=== PATIENT | male | born 1980 | race Caucasian/White ===

== ENCOUNTER → 2021-12-08 | Outpatient (CLI) | payer OTHER ==
--- NOTE | 2021-12-08 16:45 | XR ---
EXAMINATION TYPE: XR hand complete bilateral DATE OF EXAM: 12/08/2021 COMPARISON: NONE HISTORY: Pain TECHNIQUE: 6 views FINDINGS: There is no evidence of fracture nor dislocation. Joint spaces are fairly normal. There are no erosions. No subluxation. Metacarpals are intact. IMPRESSION: Negative bilateral hand exam. No sign of inflammatory arthritis.
--- NOTE | 2021-12-08 16:46 | XR ---
EXAMINATION TYPE: XR forearm bilateral DATE OF EXAM: 12/08/2021 COMPARISON: NONE HISTORY: Pain TECHNIQUE: 2 views each forearm FINDINGS: Radius and ulna appear intact. Elbow joint and wrist joint appear intact. There are no eros ions. No sign of elbow joint effusion. There is bilateral mild spurring on the olecranon process. IMPRESSION: Negative bilateral forearm exam. No sign of inflammatory arthritis.
--- NOTE | 2021-12-08 16:48 | XR ---
EXAMINATION TYPE: XR wrist complete BILATERAL DATE OF EXAM: 12/08/2021 COMPARISON: NONE HISTORY: Pain TECHNIQUE: 4 views each wrist FINDINGS: Carpal bones appear intact. There is no fracture nor dislocation. There are no erosions. No subluxation. No pathologic soft tissue calcification. IMPRESSION: Negative bilateral wrist exam. No sign of inflammatory arthritis.
== END | disposition home or self-care (01) ==
LOC: RADXRMAIN 16:07
PROVIDERS: ATTEND Emergency Medicine
DX: M79.641 Pain in right hand (principal); M79.642 Pain in left hand

== ENCOUNTER → 2022-01-22 | Outpatient (CLI) | payer OTHER ==
[2022-01-23 01:12] LABS: Anion Gap 7.6 mmol/L (10.00-18.00); Carbon Dioxide 27.8 mmol/L (20.0-27.5); Potassium 3.8 mmol/L (3.5-5.5)
[2022-01-23 02:01] LABS: Basophils # (A) 0.09 X 10*3/uL (0.00-0.10); Eosinophils # (A) 0.24 X 10*3/uL (0.04-0.35); Eosinophils % (A) 2.6 %; HCT 47.1 % (39.6-50.0); HGB 15.5 g/dL (13.0-17.0); Immature Grans, Automated 0.2 %; Lymphocytes # (A) 2.24 X 10*3/uL (0.90-5.00); Lymphocytes % (A) 23.9 %; MCH 30.1 pg (27.0-32.0); MCHC 32.9 g/dL (32.0-37.0); MCV 91.5 fL (80.0-97.0); Mean Platelet Volume 9.3 fL (9.5-12.2); Monocytes # (A) 0.65 X 10*3/uL (0.20-1.00); Monocytes % (A) 6.9 %; NRBC Per 100 WBC 0 /100 WBCS (0.0-0.0); Neutrophils # (A) 6.15 X 10*3/uL (1.80-7.70); Neutrophils % (A) 65.4 %; Platelet Count 285 X 10*3/uL (140-440); RBC 5.15 X 10*6/uL (4.40-5.60); RDW 12.9 % (11.5-14.5); WBC 9.39 X 10*3/uL (4.50-10.00)
== END | disposition home or self-care (01) ==
LOC: LABPAT 15:15
PROVIDERS: ATTEND Orthopaedic Surgery Hand Surgery
DX: Z01.812 Encounter for preprocedural laboratory examination (principal); G56.01 Carpal tunnel syndrome, right upper limb; G56.21 Lesion of ulnar nerve, right upper limb
CPT/HCPCS: 80051; 85025

== ENCOUNTER 2022-01-28 12:20 | Day surgery (SDC) | payer OTHER ==
--- NOTE | 2022-01-27 08:11 | P.HPOR ---
History of Present Illness H&P Date: 01/27/22 Chief Complaint: Right carpal tunnel/cubital tunnel syndrome Subjective: This is a 41 year old male that presents today for initial evaluation regarding progressively worsening bilateral hand paresthesias and weakness. 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 He denies any injury and states he had a recent EMG/NCV. He is currently still working but as an instructor. He states his paresthesias involve the entire hand. Physical Examination: LUE: AIN/PIN/Radial/Ulnar/Median motor intact. Radial/Ulnar/Median SILT. 2+/4 Radial/Ulnar pulses palpated. 5/5 APB, 5/5 FDI. Negative Finkelsteins, negative CMC grind, positive Durkan's compression. Paresthesias in ring and small finger with prolonged elbow flexion. RUE: AIN/PIN/Radial/Ulnar/Median motor intact. Radial/Ulnar/Median SILT. 2+/4 Radial/Ulnar pulses palpated. 5/5 APB, 5/5 FDI. Negative Finkelsteins, negative CMC grind, positive Durkan's compression. Paresthesias in ring and small finger with prolonged elbow flexion. Imaging/NCV/EMG: EMG/NCV shows bilateral cubital tunnel syndrome Impression: 1.) B/L cubital tunnel syndrome 2.) B/L carpal tunnel syndrome Plan: Diagnosis and treatment options were discussed with the patient. Nerve testing findings were discussed with the patient. We discussed he has physical exam sides of both carpal and cubital tunnel syndrome. Due to his progressively worsening symptoms despite rest and anti-inflammatories I recommend surgical intervention with right endoscopic vs open carpal tunnel release and right open cubital tunnel release. Risks and benefits of surgery including bleeding, infection, damage to surrounding tissue, need for further surgery, possible need to convert to open procedure, residual numbness were discussed and the patient wished to go forward with surgery. 4 weeks of work off will be anticipated after surgery. He would like to pursue the right side surgery first and may continue current work restrictions with no lifting/pushing or pressing with his hands and to remain as an instructor until surgery in the near future. -Caden Rodriguez DO Orthopedic Hand/Upper Extremity Surgeon Physical Examination Osteopathic Statement: *. No significant issues noted on an osteopathic structural exam other than those noted in the History and Physical/Consult.
[2022-01-27 08:26] VITALS: BMI 24.6
[~2022-01-28 12:20] MED LIST: HYDROmorphone 0.5 MG/0.5 ML SYRINGE IVP PRN; LACTATED RINGERS 1,000 ML IV SCH; Pre Op ABX Message 1 EACH MISC MISCELLANE ONE
[2022-01-28 12:51] VITALS: RESP 16
[2022-01-28] MEDS ORDERED: LIDOCAINE 1% (10MG/ML) FOR IV START INTRADERMA ONE (13:00)
[2022-01-28] MEDS ORDERED: DEXAMETHASONE SOD PHOSPHATE 4 MG/ML 1 ML VIAL IV ONE (13:05)
[2022-01-28] MEDS ORDERED: ONDANSETRON 4 MG/2 ML VIAL ONE (13:05)
[2022-01-28] MEDS ORDERED: LIDOCAINE 1% INJ 10MG/ML (30 ML VIAL-PF) SQ ONE (14:41)
[2022-01-28] MEDS ORDERED: LIDOCAINE 2% INJ 20 MG/ML (2 ML VIAL) ONE (14:41)
[2022-01-28] MEDS ORDERED: HYDROmorphone (PF) 1 MG/ML ONE (14:41)
[2022-01-28] MEDS ORDERED: PROPOFOL 10 MG/ML 20 ML VIAL IV ONE (14:41)
[2022-01-28] MEDS ORDERED: BUPIVACAINE (PF) 0.5% 30 ML VIAL SQ ONE (14:41)
[2022-01-28] MEDS ORDERED: MIDAZOLAM 2 MG/2 ML VIAL ONE (14:41)
[2022-01-28] MEDS ORDERED: fentaNYL (PF) 50 MCG/ML 2 ML AMP ONE (14:41)
[2022-01-28] MEDS ORDERED: GLYCOPYRROLATE 0.2 MG/ML 2 ML VIAL ONE (14:41)
[2022-01-28] MEDS ORDERED: LACTATED RINGERS 1,000 ML IV ONE (15:06)
[2022-01-28 15:57] VITALS: TEMP 97
--- NOTE | 2022-01-28 16:02 | P.OP ---
Date of Procedure: 01/28/22 Preoperative Diagnosis: 1.) Right carpal tunnel syndrome 2.) Right cubital tunnel syndrome Postoperative Diagnosis: 1.) Right carpal tunnel syndrome 2.) Right cubital tunnel syndrome Procedure(s) Performed: 1.) Right endoscopic carpal tunnel release 2.) Right open cubital tunnel release Anesthesia: MARCELO Surgeon: Caden Rodriguez Dairy Helper #1: Wilfrid Barbosa Estimated Blood Loss (ml): 10 Pathology: none sent Condition: stable Disposition: PACU Description of Procedure: This is a 43 year old male who presented today for a right endoscopic carpal tunnel release and open cubital tunnel release after having failed conservative treatment. Risks and benefits of surgery were discussed with the patient including bleeding, damage to surrounding tissue, infection, need for further surgery as well as risks of anesthesia including pulmonary embolism and even and the patient wished to proceed with surgical intervention. The patient was seen in the pre-operative area by myself. Consent and H&P were completed and updated. The correct extremity was marked in the pre-operative area by myself and all other questions were answered. Operative Narrative: The patient was brought to the operating room by the department of anesthesia. They remained on the portable stretcher and a rolling hand table was brought to the side of the operative extremity. Pre-operative time out was performed indicating the correct patient, procedure and laterality. All in the r oom agreed. Pre-operative antibiotics were given prior to skin incision. The patient was then drifted off to sleep by the department of anesthesia. A nonsterile tourniquet was then applied to the operative extremity and the right upper extremity was then prepped and draped in normal sterile fashion. The operative extremity was the exsanguinated with an esmarch bandage and the tourniquet was inflated to 250mmHg. 15 blade scalpel was utilized to make a transverse incision on the palmar skin just ulnar to the palmaris longus tendon at the level of the distal wrist crease. Ragnell retractor was then placed radially and blunt dissection was performed to reveal the distal forearm fascia. This was lifted with fine Marck pick ups and Littler tenotomy scissors were then used to open the forearm fascia transversely and a double skin hook was then placed. Hamate finder was placed into the carpal tunnel and then sequential sized dilators were inserted followed by the synovial elevator to separate the flexor tenosynovium from the undersurface of the transverse carpal ligament and a washboard texture was felt. The MicroAire endoscopic carpal tunnel release system gun was the then inserted into the carpal tunnel hugging the deep portion of the transverse carpal ligament in line with the base of the ring finger. Transverse fibers of the ligament were directly visualized. Pressure was applied on the palm to reveal the distal extent of the transverse carpal ligament. The blade was then deployed and the distal half of the transverse carpal ligament was released. The scope was then brought distal again and remaining transverse fibers were incised with the blade. The proximal half of the transverse carpal ligament was then divided and again the scope was advanced distal and remaining transverse fibers were incised with the blade. The radial and ulnar leaflets were directly visualized and mobile consistent with complete release. Tenotomy scissors were then utilized to release the remaining distal forearm fascia under direct visualization taking care to preserve the palmar cutaneous branch of the median nerve. Attention was brought to the medial elbow. 15 blade scalpel was used to incise skin in between the medial epicondyle and olecranon in a curvlinear and longitudinal fashion. Blunt dissection was taken down through subcutaneous tissue with tenotomy scissors and branches of the MABCN were identified and protected. Dissection was carried proximally and the ulnar nerve was identified and released in it's entirety to the intermuscular septum. Dissection was then carried distally and rhodes's ligament was released at the medial epicondyle, the nerve appeared compressed at this location. Dissection was then carried out further distal and the fascia of the two heads of the FCU were incised and the ulnar nerve was decompressed with [place] and tenotomy scissors and appeared to be tension free. The elbow was the flexed and extended and the ulnar nerve appeared to be stable in a tension free manner 20 0.5% bupivacaine was injected into the subcutaneous tissues. Skin closure was performed with interrupted 4-0 Monocryl sutures followed by running 4-0 Monocryl sutures, tourniquet was then let down and the hand had immediate perfusion. The patient was then woken by the department of anesthesia and transferred to PACU in stable condition. Wilfrid PINON was present for the case to assist in major portion of the surgery including protection of vital neurovascular structures. Caden Rodriguez D.O. Orthopedic Hand/Upper Extremity Surgeon
[2022-01-28] MEDS: hydrALAZINE HCL 20 MG/ML 1 ML VIAL IVP ONE ×2 (16:13→16:24)
[2022-01-28 16:44] VITALS: PULSE 65
[2022-01-28 17:02] VITALS: BP 165/99
== END 2022-01-28 17:13 | disposition home or self-care (01) ==
LOC: OR 12:20
PROVIDERS: ATTEND Orthopaedic Surgery Hand Surgery
DX: G56.01 Carpal tunnel syndrome, right upper limb (principal); G56.21 Lesion of ulnar nerve, right upper limb; F17.200 Nicotine dependence, unspecified, uncomplicated
CPT/HCPCS: 29848; 64718; J2250; J0360; J1100; J2405; J2001 ×2; J3010; J1170; J2704

== ENCOUNTER 2022-02-25 08:56 | Day surgery (SDC) | payer OTHER ==
--- NOTE | 2022-02-23 10:43 | P.HPOR ---
History of Present Illness H&P Date: 02/23/22 Chief Complaint: Left cubital tunnel syndrome Subjective: This is a 41 year old male that presents today for a post-operative visit after undergoing right endoscopic carpal tunnel release/right open cubital tunnel release on 01/28/22. He is 1.5 weeks out and has been doing well and notices the numbness in the hand is gone. He states he is sore but is working on ROM. He has no other complaints. He would like to look into scheduling cubital tunnel relea se for his hand numbness in the small and ring fingers on the left side. Physical Examination: RUE: AIN/PIN/Radial/Ulnar/Median motor intact. Radial/Ulnar/Median SILT. 2+/4 Radial/Ulnar pulses palpated. Bruising around medial elbow and palm. Able to make a full fist. LUE: AIN/PIN/Radial/Ulnar/Median motor intact. Radial/Ulnar/Median SILT. 2+/4 Radial/Ulnar pulses palpated. Negative durkan's compression test, paresthesias with elbow flexion in ring and small finger. Positive tinel's at elbow. Impression: 1.) S/P Right endoscopic carpal tunnel release/right open cubital tunnel release 2.) Left cubital tunnel syndrome Plan: Diagnosis and treatment options and were discussed with the patient. He may WBAT with the right upper extremity and continue to work on ROM exercises. He is scheduled for left open cubital tunnel release. Risks and benefits of surgery including bleeding, infection, damage to surrounding tissue, need for further surgery, residual numbness were discussed and the patient wished to go forward with surgery. I will see him the day of his next surgery and anticipate 4 weeks off of work post operatively for his left cubital tunnel surgery. He was agreeable with this plan. -Caden Rodriguez DO Orthopedic Hand/Upper Extremity Surgeon Past Medical History Additional Past Medical History / Comment(s): Hx spontaneous collapse of left lung X2, last in 2007. History of Any Multi-Drug Resistant Organisms: None Reported Additional Past Surgical History / Comment(s): Procedures for collapsed lung X2. Past Anesthesia/Blood Transfusion Reactions: No Reported Reaction Past Psychological History: No Psychological Hx Reported Smoking Status: Current every day smoker Past Alcohol Use History: Rare Additional Past Alcohol Use History / Comment(s): Has been smoking for 27 yrs, 1 pdd. Past Drug Use History: None Reported - Past Family History Father Family Medical History: Cancer Additional Family Medical History / Comment(s): Lung cancer. Medications and Allergies Home Medications Medication Instructions Recorded Confirmed Type HYDROcodone/APAP 5-325MG [[place] 1 tab PO Q6HR PRN 3 Days #18 tab 01/28/22 Rx 5-325] Allergies Allergy/AdvReac Type Severity Reaction Status Date / Time morphine Allergy Unknown Verified 01/28/22 12:43 Physical Examination Osteopathic Statement: *. No significant issues noted on an osteopathic structural exam other than those noted in the History and Physical/Consult.
[2022-02-23 15:31] VITALS: BMI 25.3
[~2022-02-25 08:56] MED LIST changes: +DEXAMETHASONE SOD PHOSPHATE 4 MG/ML 1 ML VIAL IV ONE; -HYDROmorphone 0.5 MG/0.5 ML SYRINGE IVP PRN; +ONDANSETRON 4 MG/2 ML VIAL IVP ONE; +fentaNYL (PF) 50 MCG/ML 2 ML AMP IV PRN
[2022-02-25] MEDS ORDERED: PROPOFOL 10 MG/ML 20 ML VIAL IV ONE (09:17)
[2022-02-25] MEDS ORDERED: KETOROLAC 30 MG/ML 1 ML VIAL ONE (09:17)
[2022-02-25] MEDS ORDERED: MIDAZOLAM 2 MG/2 ML VIAL ONE (09:17)
[2022-02-25] MEDS ORDERED: fentaNYL (PF) 50 MCG/ML 2 ML AMP ONE (09:17)
[2022-02-25] MEDS ORDERED: LACTATED RINGERS 1,000 ML IV ONE (09:21)
[2022-02-25] MEDS ORDERED: LIDOCAINE 1% INJ 10MG/ML (20 ML MDV) SQ ONE ×3 (10:14→10:46)
[2022-02-25] MEDS ORDERED: BUPIVACAINE (PF) 0.75% 10 ML VIAL SQ ONE ×3 (10:14→10:46)
[2022-02-25] MEDS ORDERED: LABETALOL SYRINGE 5 MG/ML IVP ONE (10:57)
[2022-02-25 11:11] VITALS: RESP 16; TEMP 97
[2022-02-25 12:01] VITALS: BP 153/94; PULSE 63
--- NOTE | 2022-02-25 19:03 | P.OP ---
Date of Procedure: 02/25/22 Preoperative Diagnosis: 1.) Left cubital tunnel syndrome Postoperative Diagnosis: 1.) Left cubital tunnel syndrome Procedure(s) Performed: 1.) Left open cubital tunnel release Anesthesia: MARCELO Surgeon: Caden Rodriguez Cellar Packer #1: Wilfrid Barbosa Estimated Blood Loss (ml): 0 Pathology: none sent Condition: stable Disposition: PACU Description of Procedure: This is a 41 year old male who presented today for a left open cubital tunnel release after having failed conservative treatment. Risks and benefits of surgery were discussed with the patient including bleeding, damage to surrounding tissue, infection, need for further surgery as well as risks of anesthesia including pulmonary embolism and even and the patient wished to proceed with surgical intervention. The patient was seen in the pre-operative area by myself. Consent and H&P were completed and updated. The correct extremity was marked in the pre-operative area by myself and all other questions were answered. Operative Narrative: The patient was brought to the operating room by the department of anesthesia. They remained on the portable stretcher and a rolling hand table was brought to the side of the operative extremity. Pre-operative time out was perfo rmed indicating the correct patient, procedure and laterality. All in the room agreed. Pre-operative antibiotics were given prior to skin incision. The patient was then drifted off to sleep by the department of anesthesia. A nonsterile tourniquet was then applied to the operative extremity and the left upper extremity was then prepped and draped in normal sterile fashion. The operative extremity was the exsanguinated with an esmarch bandage and the tourniquet was inflated to 250mmHg. Attention was brought to the medial elbow. 15 blade scalpel was used to incise skin in between the medial epicondyle and olecranon in a curvlinear and longitudinal fashion. Blunt dissection was taken down through subcutaneous tissue with tenotomy scissors and branches of the MABCN were identified and prot ected. Dissection was carried proximally and the ulnar nerve was identified and released in it's entirety to the the intermuscular septum. Dissection was then carried distally and rhodes's ligament was released at the medial epicondyle, the nerve appeared compressed at this location. Dissection was then carried out further distal and the fascia of the two heads of the FCU were incised and the ulnar nerve was decompressed with [place] and tenotomy scissors and appeared to be tension free. The elbow was the flexed and extended and the ulnar nerve appeared to be stable in a tension free manner. 0.5% bupivacaine was injected into the subcutaneous tissues. Skin closure was performed with interrupted 4-0 Monocryl sutures followed by running 4-0 Monocryl sutures tourniquet was then let down and the hand had immediate perfusion. The patient was then woken by the department of anesthesia and transferred to PACU in stable condition. Wilfrid PINON was present to assist in major portions of the case including protection of vital neurovascular structures and retraction. Caden Rodriguez D.O. Orthopedic Hand/Upper Extremity Surgeon
== END 2022-02-25 12:25 | disposition home or self-care (01) ==
LOC: OR 08:56
PROVIDERS: ATTEND Orthopaedic Surgery Hand Surgery
DX: G56.22 Lesion of ulnar nerve, left upper limb (principal); F17.200 Nicotine dependence, unspecified, uncomplicated; Z86.59 Personal history of other mental and behavioral disorders; Z80.1 Family history of malignant neoplasm of trachea, bronchus and lung; Z80.0 Family history of malignant neoplasm of digestive organs; Z88.5 Allergy status to narcotic agent; Z79.899 Other long term (current) drug therapy
CPT/HCPCS: 64718; J2250; J1100; J2405; J2001; J3010; J1885; J2704

== ENCOUNTER → 2022-03-18 | Day surgery (SDC) | payer OTHER ==
[2022-03-13 12:06] VITALS: BMI 25.0
--- NOTE | 2022-03-17 15:45 | P.HPOR ---
History of Present Illness H&P Date: 03/17/22 Chief Complaint: Left cubital tunnel syndrome with ulnar nerve instability Subjective: This is a 41 year old male that presents today for a post-operative visit after undergoing left open cubital tunnel release on 02/25/22, he also underwent right endoscopic carpal tunnel release and right open in situ cubital tunnel release on 01/28/22. He states his right side is doing well and he is continuing to improve on a daily basis. Regarding his left side he states he has noticed worsening of his symptoms since the open cubital tunnel release now 11 days out from surgery. He states his hand feels very weak and has numbness in the small finger which is now worse than before surgery and has constant electrical shocks going down the inside of the arm to the small finger. He was initially in his post op dressing which he was able to remove at home on post op day 4. He denies any new injury and since his last vist last week he has noticed no change in his symptoms and slighlt worsening of the symptoms. Physical Examination: LUE: AIN/PIN/Radial/Median motor intact. Radial/Median SILT. 2+/4 Radial/Ulnar pulses palpated. Medial elbow incision well approximated, no signs of erythema or drainage. Bruising present throughout upper arm/elbow. Subjective worsening of paresthesias and pain in small finger, sensation intact to light touch in thumb through ring finger. 2/5 FDI. Patient unable to make fist. Impression: 1.) S/P Left open in situ cubital tunnel release Plan: Diagnosis and treatment options and were discussed with the patient. We discussed findings of worsening left cubital tunnel syndrome symptoms since surgery. We discussed that in situ release was performed on both the left and right side. I explained he did have a fair amount of tension on the left ulnar nerve at the level of the elbow with full flexion however his nerve was found to be stable intraoperatively after decompression therefore decision to not perform transposition was made. I explained that after in situ decompression he may be developing instability of the ulnar nerve after release on this left side. Due to his rapidly worsening ulnar nerve symptoms I recommend revision cubital tunnel release with anterior transposition due to the possibility of traction neuropraxia on the recently released ulnar nerve and to possibly address any instability that is now developing after surgery causing worsening of his cubital tunnel syndrome symptoms. The patient expressed understanding and is agreeable with this plan of action. Risks and benefits of surgery including bleeding, infection, damage to surrounding tissue, need for further surgery, residual numbness were discussed and the patient wished to go forward with surgery. -Caden Rodriguez DO Orthopedic Hand/Upper Extremity Surgeon Past Medical History Additional Past Medical History / Comment(s): Hx spontaneous collapse of left lung X2, last in 2007. History of Any Multi-Drug Resistant Organisms: None Reported Past Surgical History: Orthopedic Surgery Additional Past Surgical History / Comment(s): Procedures for collapsed lung X2. Right carpal tunnel/ CUBILAT surgery. LT CUBITAL TUNNEL RELEASE-02/25/22 Past Anesthesia/Blood Transfusion Reactions: No Reported Reaction Smoking Status: Current every day smoker - Past Family History Father Family Medical History: Cancer Additional Family Medical History / Comment(s): Lung cancer. Medications and Allergies Home Medications Medication Instructions Recorded Confirmed Type No Known Home Medications 02/23/22 03/13/22 History Allergies Allergy/AdvReac Type Severity Reaction Status Date / Time morphine Allergy Unknown Verified 03/13/22 12:01 Physical Examination Osteopathic Statement: *. No significant issues noted on an osteopathic structural exam other than those noted in the History and Physical/Consult.
[~2022-03-18] MED LIST changes: +BACITRACIN OINT 1 EACH PACKET TOPICAL ONE; +BUPIVACAINE (PF) 0.5% 30 ML VIAL SQ ONE; +HYDROcodone/APAP 7.5-325MG 1 EACH TAB ONE; +HYDROcodone/APAP 7.5-325MG 1 EACH TAB PO ONE; +HYDROmorphone (PF) 1 MG/ML ONE; +HYDROmorphone 0.5 MG/0.5 ML SYRINGE IVP ONE; +HYDROmorphone 0.5 MG/0.5 ML SYRINGE IVP PRN; +LACTATED RINGERS 1,000 ML IV ONE; +LIDOCAINE 1% (10MG/ML) FOR IV START INTRADERMA PRN; +LIDOCAINE 2% INJ 20 MG/ML (2 ML VIAL) ONE; +MIDAZOLAM 2 MG/2 ML VIAL ONE; +PROPOFOL 10 MG/ML 20 ML VIAL IV ONE; -Pre Op ABX Message 1 EACH MISC MISCELLANE ONE; -fentaNYL (PF) 50 MCG/ML 2 ML AMP IV PRN; +fentaNYL (PF) 50 MCG/ML 2 ML AMP ONE; +hydrALAZINE HCL 20 MG/ML 1 ML VIAL IVP ONE
[2022-03-18 17:12] VITALS: TEMP 97.7
--- NOTE | 2022-03-18 17:27 | P.OP ---
Date of Procedure: 03/18/22 Preoperative Diagnosis: 1.) Left cubital tunnel syndrome Postoperative Diagnosis: 1.) Left cubital tunnel syndrome Procedure(s) Performed: 1.) Left ulnar nerve decompression at level of elbow with anterior subcutaneous transposition Anesthesia: MARCELO Surgeon: Caden Rodriguez Filter Changer #1: Wilfrid Barbosa Estimated Blood Loss (ml): 15 Pathology: none sent Condition: stable Disposition: PACU Description of Procedure: This is a 41 year old male who presented initially with clinical and electrodiagnostically confirmed left cubital tunnel syndrome who originally underwent a left open in situ ulnar nerve decompression on 02/25/22. In the early post operative period he was found to have worsening signs and symptoms of cubital tunnel syndrome with persistent and worsening paresthesias in the small finger which was present prior to the initial procedure but now with motor weakness in the ulnar nerve distribution which was not present prior to surgery. Due to patients worsening condition decision was made to proceed with revision ulnar nerve decompression with anterior transposition. He presents today for a left open cubital tunnel release with anterior transposition. Risks and benefits of surgery were discussed with the patient including bleeding, persistent numbness, damage to surrounding tissue, infection, need for further surgery as well as risks of anesthesia including pulmonary embolism and even and the patient wished to proceed with surgical intervention. The patient was seen in the pre-operative area by myself. Consent and H&P were completed and updated. The correct extremity was marked in the pre-operative area by myself and all ot her questions were answered. Operative Narrative: The patient was brought to the operating room by the department of anesthesia. They remained on the portable stretcher and a rolling hand table was brought to the side of the operative extremity. Pre-operative time out was performed indicating the correct patient, procedure and laterality. All in the room agreed. Pre-operative antibiotics were given prior to skin incision. The patient was then drifted off to sleep by the department of anesthesia. A nonsterile tourniquet was then applied to the operative extremity and the left upper extremity was then prepped and draped in normal sterile fashion. The operative extremity was the exsanguinated with an esmarch bandage and the tourniquet was inflated to 250mmHg. Attention was brought to the medial elbow. 15 blade scalpel was used to incise skin at the previous incision site in between the medial epicondyle and olecranon in a curvlinear and longitudinal fashion. Blunt dissection was taken down through subcutaneous tissue with tenotomy scissors and branches of the MABCN were identified and protected as they were in the initial surgery and were found to still be intact. Dissection was first carried proximally and the ulnar nerve was identified. Dissection was then carried distally at the previous site of decompression at the medial epicondyle and early fibrous tissue surrounding the nerve was excised. The nerve was found to still be located posterior to the medial epicondyle but slightly subluxed over the medial epicondyle. The site of maximum compression at the index procedure was found to be located just posterior to the medial epicondyle, the nerve appeared to be healthier in appearance today compared to the index procedure at this particular site. Therefore the decision was made to carry the dissection further proximal and distal. Dissection was then carried out further distal and the fascia of the two heads of the FCU were bluntly seperated and the ulnar nerve was found to be adequately decompressed and appeared to be tension free with all surrounding fascial bands to be released distally as it was left at the end of the index procedure. Next the incision was extended proximally to look for further compression. Blunt dissection was taken down through subcutaneous tissues, the ulnar nerve was followed proximally and the patient was found to have an atypically proximally located [place] of [place], the ulnar nerve appeared to be very compressed at this location underneath a fascial band. The overlying fascial band was released and the nerve was now completely decompressed and tension free all the way up to healthy nerve tissue to the level where the nerve pierced the medial intermuscular septum. Decision was made to transpose the nerve anteriorly. The nerve was mobilized throughout it's entire length while preserving branches both proximally and distally to the FCU muscle. A flap of subcutaneous fat/tissue was then from the tissue anterior to the medial epicondyle to create a fascial sling anteriorly. The medial intermuscular septum was taken down to avoid a new area of compression proximally. 3-0 Vicryl suture was used to attach the fascial sling to the fibrous tissue around the medial epicondyle to prevent nerve subluxation. This was done in a tension free manner taking care not to compress the nerve with the new fascial sling. The elbow was the flexed and extended and the ulnar nerve appeared to be stable in a tension free manner with no kinks distal or proximally at it's newly transposed position. Tourniquet was then let down and direct pressure was held for several minutes. Hemostasis was controlled with needle tip bovie cautery. The hand had immediate perfusion. 25cc's 0.5% bupivacaine was injected into the subcutaneous tissues. Skin closure was performed with interrupted 3-0 Vicryl sutures followed by several running 4-0 nylon sutures. The patient was then placed in a large bulky dressing. The patient was then woken by the department of anesthesia and transferred to PACU in stable condition. Wilfrid PINON was present to assist in major portions of the case including protection of vital neurovascular structures and retraction. Caden Rodriguez D.O. Orthopedic Hand/Upper Extremity Surgeon
[2022-03-18 18:13] VITALS: BP 162/89; PULSE 77; RESP 18
== END | disposition home or self-care (01) ==
LOC: OR 11:34
PROVIDERS: ATTEND Orthopaedic Surgery Hand Surgery
DX: G56.22 Lesion of ulnar nerve, left upper limb (principal); F17.200 Nicotine dependence, unspecified, uncomplicated; Z80.1 Family history of malignant neoplasm of trachea, bronchus and lung; Z98.890 Other specified postprocedural states; Z88.5 Allergy status to narcotic agent
CPT/HCPCS: 64718; J2250; J0360; J1100; J0690; J2405; J3010; J1170 ×2; J2704; J2001